=== PATIENT | female | born 1955 | race Caucasian/White ===

== ENCOUNTER 2019-04-26 21:13 | Inpatient (IN) | payer MEDICARE, BC ==
[~2019-04-26] VITALS: Ht 157.5 cm; Wt 49.0 kg
[~2019-04-26 21:13] MED LIST: ALBU18HF2 INH; Acyclovir PO; Naproxen PO; PANT40TA2 PO
[2019-04-26 22:26] LABS: BASOPHILS % (AUTO) 0.5 % (0.0-2.0); EOSINOPHILS % (AUTO) 0.5 % (0.0-6.0); HEMATOCRIT 41 % (33-45); HEMOGLOBIN 13.6 g/dL (11.5-14.8); LYMPHOCYTES # (AUTO) 1.1 /CMM (0.8-4.8); LYMPHOCYTES % (AUTO) 10.9 % (20.0-44.0); MEAN CORPUSCULAR HGB CONC 33 g/dl (31.0-36.0); MEAN CORPUSCULAR VOLUME 94 fL (82-100); MONOCYTES # (AUTO) 0.6 /CMM (0.1-1.30); MONOCYTES % (AUTO) 6.2 % (2.0-12.0); NEUTROPHILS # (AUTO) 8.2 /CMM (1.8-8.9); NEUTROPHILS % (AUTO) 81.9 % (43.0-81.0); PLATELET COUNT (AUTO) 280 /CMM (150-450); RED BLOOD CELL COUNT(AUTO) 4.39 MIL/uL (4.0-5.2)
[2019-04-26 22:34] LABS: CALCIUM, SERUM 9.6 mg/dL (8.5-10.1); CARBON DIOXIDE 27 mmol/L (21-32); CHLORIDE 104 mmol/L (98-107); CREATININE 0.9 mg/dL (0.6-1.3); GLUCOSE 114 mg/dL (74-106); POTASSIUM 4.3 mmol/L (3.5-5.1); SODIUM SERUM 140 mmol/L (136-145); UREA NITROGEN, BLOOD 14 mg/dL (7-18)
--- NOTE | 2019-04-26 22:39 | NUR ---
PT CAME TO ER BIB RA W/ C/O SYNCOPAL EVENT. PT IS CURRENTLY AAOX4. PT DOES NOT HAVE ANY RECOLLECTION OF THE SYNCOPE. PT'S STATES THAT SHE SLUMPED OVER DURING DINNER AND DID NOT RESPOND TO ANY VERBAL COMMANDS, PT WAS ONLY MOANING. AAOX4. NO SOB. BREATHING EVENLY AND UNLABORED ON ROOM AIR. CONNECTED TO TONGUER.
[2019-04-26 22:40] LABS: ALANINE AMINOTRANSFERASE 21 U/L (12-78); ALBUMIN 4.1 g/dL (3.4-5.0); ALKALINE PHOSPHATASE 138 U/L (46-116); ASPARTATE AMINOTRANSFERASE 21 U/L (15-37); BILIRUBIN,DIRECT 0.1 mg/dL (0.0-0.2); BILIRUBIN,TOTAL 0.4 mg/dL (0.2-1.0); TOTAL PROTEIN, SERUM 7.9 g/dL (6.4-8.2)
--- NOTE | 2019-04-26 23:13 | NUR ---
PATIENT NOTED WITH LOW BLOOD PRESSURE. MD NOTIFIED. MD GIVES VERBAL ORDER OF 1L NORMAL SALINE BOLUS.
--- NOTE | 2019-04-26 23:19 | NUR ---
PATIENT MEDICATED WITH 1L OF NORMAL SALINE BOLUS.
[2019-04-26] MEDS ORDERED: IV NS 0.9% 1,000 ML BAG IV ONE (23:30)
[2019-04-27] VITALS (7 sets, daily range): BP systolic 78–120; BP diastolic 55–86
[2019-04-27] MEDS ORDERED: IV NS 0.9% 1,000 ML IV PRN (00:09)
--- NOTE | 2019-04-27 00:10 | NUR ---
REPORT GIVEN TO SHEILA CRAIG FOR ANDREW.
--- NOTE | 2019-04-27 00:15 | NUR ---
received MS AVALOS FROM ER VIA GURNEY AWAKE A/O X 4, WITH DX OF SYNCOPE, NO SIGN AND SYMPTOMS OF DISTRESS WITH 02 SAT OF 97% ON ROOM AIR,, PT IS ABLE TO CONVERSE, WITH LEFT FOOT IV LINE # 22 WITH RUNNING NS 1L @100ML/HR INFUSING WELL, HEAD TO TOE ASSESSMENT DONE WITH NO SKIN ISSUE NOTED, ADMISSION ASSESSMENT DONE, PT WAS KEPT COMFORTABLY AND SAFELY ON BED, BED ON LOWEST POSIBLE POSITION, SIDERAILS UP X2 CALL LIGHT WITHIN REACH WILL CONT. TO MONITOR THE PATIENT
[2019-04-27] MEDS ORDERED: ONDANSETRON HCL/PF 4 MG/2 ML VIAL IVP PRN (00:30)
[2019-04-27] MEDS ORDERED: ACETAMINOPHEN 325 MG TABLET PO PRN (00:30)
[2019-04-27] MEDS ORDERED: MAGNESIUM HYDROXIDE 30 ML UDC PO PRN (00:30)
[2019-04-27] MEDS ORDERED: TEMAZEPAM 15 MG CAPSULE PO PRN (00:30)
[2019-04-27] MEDS ORDERED: HYDROCODONE/APAP 5/325MG 1 EACH TABLET PO PRN (00:30)
[2019-04-27] MEDS ORDERED: MAG HYDROX/AL HYDROX/SIMETH 30 ML UDC PO PRN (00:30)
[2019-04-27] MEDS ORDERED: MORPHINE SULFATE INJ 2 MG/ML DISP.SYRIN IV PRN (00:30)
[2019-04-27] MEDS ORDERED: ALBUTEROL FS 2.5 MG/0.5 ML VIAL.NEB NEB PRN (01:00)
--- NOTE | 2019-04-27 07:00 | NUR ---
EXIT BOOTH AGENT NOTES RECEIVED PATIENT FROM LEAD ATG DEVELOPER RN. PATIENT IN STABLE CONDITION. PT IN STABLE CONDITION WITH NO SIGNS AND SYMPTOMS OF DISTRESS, NO COMPLAINTS OF DISCOMFORT. SAFETY MEASURES MAINTAINED,POSITION BED TO THE LOWEST, SIDE RAILS UP X2 CALL LIGHT WITH REACH.
--- NOTE | 2019-04-27 07:09 | NUR ---
EDITORIAL SPECIALIST CLOSING NOTES PT ON STABLE CONDITION NO SIGN AND SYMPTOMS OF ANY DISTRESS, NO DISCOMFORT NOTED, ALL NEEDS ATTENDED, SAFETY MEASURE MAINTAINED,POSITION BED TO THE LOWEST, SIDE RAILS UP X2 CALL LIGHT WITH REACH NO SIGNIFICANT CHANGES ON CONDITION FROM ADMISSION, WILL ENDORSE TO AM NURSE Addendum: 04/27/19 at 0751 by MAGALI TORRES RN ON TELE MONITOR ON CURRENT READING OF SINUS RHYTHM 88
[2019-04-27] MEDS ORDERED: APIX5TAB PO (08:27)
[2019-04-27] MEDS ORDERED: ATOR10TA PO (08:27)
[2019-04-27] MEDS ORDERED: DONE5TAB34 PO (08:27)
[2019-04-27] MEDS: ASPIRIN 81 MG TAB.CHEW PO SCH (09:40)
--- NOTE | 2019-04-27 11:33 | NUR ---
ORTHO STATIC BLOOD PRESSURE TAKEN: LAYING 111/67, SITTING 108/67, STANDING 113/76
--- NOTE | 2019-04-27 12:06 | NUR ---
REQUESTED MEDICAL RECORDS FROM [facility]. FAX NUMBER . PHONE NUMBER .
[2019-04-27] MEDS: LORAZEPAM 0.5 MG TABLET PO PRN ×2 (14:44→23:11)
--- NOTE | 2019-04-27 19:55 | NUR ---
MANAGER UTILIZATION END OF SHIFT SUMMARY PATIENT IN STABLE CONDITION. PT IN STABLE CONDITION WITH NO SIGNS AND SYMPTOMS OF DISTRESS, NO COMPLAINTS OF DISCOMFORT. FAMILY IS AT BEDSIDE. PATIENT TELE IS NSR. IV ACCESS ON LEFT FOOT, FLUSHES WELL AND PATENT. SAFETY MEASURES MAINTAINED,POSITION BED TO THE LOWEST, SIDE RAILS UP X2 CALL LIGHT WITH REACH. WILL ENDORSE CARE TO ONCOMING RN.
--- NOTE | 2019-04-27 20:51 | NUR ---
TELE/RN OPENING NOTE RECEIVED PATIENT IN BED A/O X4 TAMAZIGHT SPEAKER WITH AT BEDSIDE WITH NOT SIGN OF ANY DISTRESS. PATIENT ON MONITOR SHOWING SINU RHYTHM WITH HR IN THE 80'S. ON ROOM AIR WITH NO SIGNS OF SOB. PATIENT HAS IV ACCESS ON LT FOOT #22G WITH NS RUNNING AT 100CC/HR. ALL SAFETY PRECAUTIONS APPLIED WILL CONTINUE TO MONITOR PATIENT THROUGHOUT SHIFT.
[2019-04-27] MEDS ORDERED: ATORVASTATIN 10 MG TABLET PO SCH (22:00)
[2019-04-28] VITALS: BP 116/73
[2019-04-28 04:00] VITALS: BP 120/70
[2019-04-28 06:27] LABS: BASOPHILS # (AUTO) 0.1 /CMM (0.0-0.2); BASOPHILS % (AUTO) 0.8 % (0.0-2.0); EOSINOPHILS % (AUTO) 4.1 % (0.0-6.0); HEMATOCRIT 37 % (33-45); HEMOGLOBIN 11.9 g/dL (11.5-14.8); LYMPHOCYTES # (AUTO) 1.8 /CMM (0.8-4.8); LYMPHOCYTES % (AUTO) 25.8 % (20.0-44.0); MEAN CORPUSCULAR HGB CONC 32 g/dl (31.0-36.0); MEAN CORPUSCULAR VOLUME 94 fL (82-100); MONOCYTES # (AUTO) 0.7 /CMM (0.1-1.30); MONOCYTES % (AUTO) 9.8 % (2.0-12.0); NEUTROPHILS # (AUTO) 4.2 /CMM (1.8-8.9); NEUTROPHILS % (AUTO) 59.5 % (43.0-81.0); PLATELET COUNT (AUTO) 201 /CMM (150-450); WHITE BLOOD COUNT (AUTO) 7.1 K/uL (4.3-11.0)
[2019-04-28 06:48] LABS: CALCIUM, SERUM 9.2 mg/dL (8.5-10.1); CREATININE 0.6 mg/dL (0.6-1.3); MAGNESIUM 1.9 mg/dL (1.8-2.4)
[2019-04-28 07:43] LABS: THYROID STIMULATING HORMONE 3.069 uIU/mL (0.358-3.74)
--- NOTE | 2019-04-28 07:44 | NUR ---
WOODWIND INSTRUMENTS INSPECTOR CLOSING NOTE PATIENT IN BED WITH NO SIGN OF ANY DISTRESS. PATIENT TOLERATES ROOM AIR WITH NO SOB. ON THE MONITOR SHOWING AT SINUS RHYTHM. ALL SAFETY PRECULATIONS APPLIED. ENDORSED PATIENT TO MORNING SHIFT NURSE
[2019-04-28 08:00] VITALS: BP 129/93
--- NOTE | 2019-04-28 08:00 | NUR ---
RN OPENING NOTE: RECEIVED PATIENT IN BED THIS MORNING. PATIENT IS ALERT X4, RESPONDS APPROPRIATELY. NO ACUTE DISTRESS NOTED. NEURO CHECK DONE, PERRLA, TONGUE MIDLINE, SMILE SYMMETRICAL, NO SLURRED SPEECH. PATIENT IS ON A TELE MONITOR, SINUS RHYTHM. NO SIGNS OF RESPIRATORY DISTRESS. VERIFIED CODE STATUS WITH PATIENT, CONFIRMING SHE IS A FULL CODE, WILL INPUT ORDER. PATIENT HAS 22G ON LEFT FOOT, FLUSHING WELL, C/D/I, NO SIGNS OF COMPLICATION NOTED. IMPLEMENTED SAFETY PRECAUTIONS, BED IN LOWEST POSITION, LOCKED, SIDE RAILS UP X2, CALL LIGHT WITHIN REACH. WILL CONTINUE TO MONITOR PATIENT FOR ANY CHANGES.
[2019-04-28] MEDS: ASPIRIN 81 MG TAB.CHEW PO SCH (08:46)
[2019-04-28] MEDS: APIXABAN 5 MG TABLET PO SCH ×2 (08:50→17:05)
[2019-04-28] MEDS: LORAZEPAM 0.5 MG TABLET PO PRN ×2 (11:42→19:05)
--- NOTE | 2019-04-28 11:42 | NUR ---
PRN ATIVAN GIVEN FOR C/O ANXIOUSNESS Addendum: 04/28/19 at 1905 by RUSS BROWN RN PRN ATIVAN WAS GIVEN FOR ANXIOUSNESS
[2019-04-28 12:00] VITALS: BP 130/89
[2019-04-28] MEDS ORDERED: ASPI-1169 PO (12:25)
[2019-04-28 16:00] VITALS: BP 126/86
[2019-04-28] MEDS ORDERED: DONEPEZIL 5 MG TABLET PO SCH (18:00)
--- NOTE | 2019-04-28 19:22 | NUR ---
RN CLOSING NOTE: PATIENT IS RESTING IN BED WITH NO ACUTE CHANGES NOTED. VSS. PATIENT NEEDS HAVE BEEN MET. SAFETY MEASURES HAVE BEEN IMPLEMENTED, CALL LIGHT WITHIN REACH, BED IN LOWEST AND LOCKED POSITION, SIDE RAILS UP X2. PATIENT HAS BEEN ENDORSED TO ONCOMING SHIFT FOR CONTINUITY OF CARE.
--- NOTE | 2019-04-28 19:49 | NUR ---
TELE/RN NOTE PATIENT IN BED WITH NO SIGN OF ANY DISTRESS. TOLERATING ROOM AIR WITH SATURATION IN THE96%. NO SIGN OF ANY SOB. PATIENT IS SCHEDULE TO BE DISCHARGED. IV HAS BEEN REMOVED. TELE BOX REMOVED AND HAS ARRIVED FOR ENAMELER. PATIENT WAITING COMFORTABLY IN ROOM FOR .
[2019-04-28 20:00] VITALS: BP 132/82
== END 2019-04-28 20:49 | disposition home or self-care (01) | DRG 74 ==
LOC: ER 21:17 → TELE1 22:59
PROVIDERS: ADMIT Nurse Practitioner Acute Care; ATTEND Nurse Practitioner Acute Care
DX: G90.8 Other disorders of autonomic nervous system (principal); I69.354 Hemiplegia and hemiparesis following cerebral infarction affecting left non-dominant side; J98.11 Atelectasis; J44.9 Chronic obstructive pulmonary disease, unspecified; G43.909 Migraine, unspecified, not intractable, without status migrainosus; Z98.890 Other specified postprocedural states; Z88.0 Allergy status to penicillin; Z79.51 Long term (current) use of inhaled steroids; Z79.899 Other long term (current) drug therapy; Z87.891 Personal history of nicotine dependence; Z86.61 Personal history of infections of the central nervous system; Z79.01 Long term (current) use of anticoagulants; Z95.810 Presence of automatic (implantable) cardiac defibrillator; F11.21 Opioid dependence, in remission; G93.89 Other specified disorders of brain; Z87.01 Personal history of pneumonia (recurrent); I69.320 Aphasia following cerebral infarction
CPT/HCPCS: 36415; 70450-TC; 71045-TC; 80048-TC; 80061-TC; 80076-TC; 83735-TC; 84100-TC; 84443-TC; 84484-TC; 85025-TC; 85730-TC; 87081-TC; 93307-TC; 95819-TC; 97116-TC; 97530-TC; G0378; G0480; J7030